=== PATIENT | female | born 1985 | race African-American/Black ===

== ENCOUNTER 2017-06-25 08:12 | Outpatient (CLI) | payer MEDICARE ==
--- NOTE | 2017-06-25 09:54 | CT ---
CT PELVIS WITHOUT CONTRAST: Date: 06/25/17 HISTORY: Pelvic pain. FINDINGS: The visualized small bowel loops appear normal. The appendix is identified and appears normal. Images through the pelvis show an unremarkable appearing uterus. There is a cyst in the right adnexa consis tent with an ovarian cyst which measures up to 2.5 cm. No free fluid in the pelvis. The osseous struc tures are unremarkable. IMPRESSION: 1. Evidence of right ovarian cyst. 2. CT pelvis otherwise unremarkable. POS: [facility]
== END 2017-06-25 08:13 | disposition home or self-care (01) ==
LOC: CT 08:12
PROVIDERS: ATTEND Physician Assistant
DX: R10.2 Pelvic and perineal pain (principal); N83.201 Unspecified ovarian cyst, right side
CPT/HCPCS: 72192

== ENCOUNTER 2018-04-08 17:22 | Emergency (ER) | payer MEDICARE ==
[~2018-04-08 17:22] MED LIST: ISOVUE-370 76%-LOCM 1 ML ONE
[2018-04-08 17:48] LABS: #Eosinphils 0.2 thou/uL (0.0-0.7); #Monocytes 0.5 thou/uL (0.11-0.59); #Neutrophils 4.2 thou/uL (1.40-6.50); %Basophils 0.4 % (0.0-1.0); %Lymphocytes 37.7 % (21.0-51.0); %Monocytes 6.8 % (0.0-10.0); %Neutrophils 53.2 % (42.0-75.0); Hemoglobin 14.2 g/dL (12.0-16.0); Mean Corpuscular HGB CONC 32.8 g/dL (32.0-36.0); Mean Corpuscular Hemoglobin 29.5 pg (27.0-31.0); Mean Platelet Volume 7.5 fL (7.4-10.4); Platelet Count 335 thou/uL (130-400); RBC Distribution Width 11.5 % (11.5-14.5); Red Blood Cell (RBC) Count 4.82 mill/uL (4.20-5.40)
[2018-04-08 18:08] LABS: BHCG - Serum Negative (NEGATIVE); Pregs Control Background? CLEAR/WHITE (CLR/WHITE); Pregs Control Bar Appear? YES (CONTROL BAR)
[2018-04-08 18:16] LABS: CKMB 1.9 ng/mL (0-6.6); Troponin I Less than 0.010 ng/mL (< 0.028)
--- NOTE | 2018-04-08 18:17 | RAD ---
PORTABLE AP CHEST X-RAY 04/08/18 HISTORY: Chest pain. COMPARISON: None available. FINDINGS: The cardiac silhouette and pulmonary vasculature are within normal limits. There is linear and patchy density at the medial right lung base probably related to superimposition of structures. The lungs a re otherwise clear. Osseous structures are intact. IMPRESSION: No acute cardiopulmonary process. POS: [facility]
[2018-04-08 18:28] LABS: ALT (SGPT) 18 U/L (8-55); AST (SGOT) 24 U/L (5-34); Albumin 4.3 g/dL (3.5-5.0); Alkaline Phosphatase 63 U/L (40-150); Anion Gap 14 mmol/L (10-20); BUN (Urea Nitrogen) 7 mg/dL (7.0-18.7); Bilirubin, Total 0.3 mg/dL (0.2-1.2); Calc. Creatinine Clearance 0 mL/min (70-130); Calcium 9.8 mg/dL (7.8-10.44); Carbon Dioxide 21 mmol/L (22-29); Chloride 108 mmol/L (98-107); Estimated GFR-MDRD Greater than 90; Globulin 3.1 g/dL (2.4-3.5); Glucose 108 mg/dL (70-105); Potassium 4.4 mmol/L (3.5-5.1); Protein, Total 7.4 g/dL (6.0-8.3); Sodium 139 mmol/L (136-145)
[2018-04-08] MEDS ORDERED: Acetaminophen 500 MG TAB ONE (19:30)
--- NOTE | 2018-04-08 20:44 | CT ---
CT ANGIOGRAM THORAX WITH IV CONTRAST AND 3D RECONSTRUCTIONS: 04/08/18 HISTORY: Constant left sided chest pain with sudden onset this morning. Heaviness in chest. Shortness of breat h and fatigue for the past three days. Lower extremity swelling. COMPARISON: 05/10/16. FINDINGS: There is a filling defect seen within a medial right upper lobe subsegmental vessel, but this is thou ght to more likely be related to a pulmonary vein as opposed to a pulmonary artery, but this is diffi cult to adequately evaluate given the dense contrast within the adjacent SVC and azygos vein limiting adequate evaluation. However, there are no other filling defects seen within the pulmonary arteries to definitely suggest a pulmonary embolus. The thoracic aorta is normal in caliber without evidence of an aortic dissection. There is mild stranding seen within the anterior superior mediastinum, but this is stable when compar ed to study in 2016 and may be related to residual thymic tissue. No enlarged lymph node is seen by C T size criteria. There is dependent atelectasis bilaterally. The lungs are otherwise clear. There is a subcentimeter too small to characterize hypodense lesion within the left hepatic lobe with calcified granuloma again seen in the liver. remainder of the fragment has a normal CT appearance. IMPRESSION: 1. No definite CT evidence of a pulmonary embolus. 2. Small filling defect within a subsegmental medial right upper lobe vessel which is thought to more likely represent a pulmonary vein as opposed to a filling defect within a pulmonary artery rela gigi to a pulmonary embolus. In addition, there are no additional filling defects seen throughout the pulmonary arteries. 3. Subcentimeter too small to characterize hypodense lesion left hepatic lobe. POS: [facility]
== END 2018-04-08 21:18 | disposition home or self-care (01) ==
LOC: ERS 17:22
DX: R07.89 Other chest pain (principal); F32.9 Major depressive disorder, single episode, unspecified
CPT/HCPCS: 71045; 71275; 80053; 82553; 84484; 84703; 85025; 93005

== ENCOUNTER 2018-05-14 22:55 | Emergency (ER) | payer MEDICARE ==
[2018-05-14] MEDS ORDERED: Ketorolac Tromethamine 30 MG/ML VIAL ONE (23:04)
[2018-05-14] MEDS ORDERED: Metoclopramide HCl 10 MG/2 ML VIAL ONE (23:04)
[2018-05-14 23:58] LABS: BHCG - Serum Negative (NEGATIVE); Pregs Control Background? CLEAR/WHITE (CLR/WHITE); Pregs Control Bar Appear? YES (CONTROL BAR)
[2018-05-15] MEDS ORDERED: methylPREDNISolone Sod Succ/PF 125 MG/2 ML VIAL ONE (01:20)
[2018-05-15] MEDS ORDERED: Acetaminophen 500 MG TAB ONE (01:20)
[2018-05-15] MEDS ORDERED: Magnesium 2 GM/50 ML BAG (IN WATER) ONE (01:20)
--- NOTE | 2018-05-15 08:05 | CT ---
PRELIMINARY REPORT/[facility]/EMERGENTY AFTER-HOURS PROCEDURE CT Head Without Intravenous Contrast CLINICAL HISTORY: 33 years old, female; Pain; Headache; Cluster; Patient HX: 33f presents for the evaluation of a heada shyam x 2 weeks. Patient reports gradual progression of headache. No HX of migraines or headaches in th e past. She denies vision changes. Occasional light and sound sensitivity. No head trauma. No aura. P atient has taken otc tylenol and motrin with no relief. TECHNIQUE: Axial computed tomography images of the head/brain without intravenous contrast. COMPARISON: No relevant prior studies available. FINDINGS: Brain: No acute findings. No hemorrhage. No significant white matter disease. No edema. Ventricles: No acute findings. No ventriculomegaly. Bones/joints: No acute fracture. Soft tissues: No acute findings. Sinuses: No acute findings. No significant air fluid levels. Mastoid air cells: No acute findings. No significant fluid. IMPRESSION: No acute findings. Thank you for allowing us to participate in the care of your patient. Dictated and Authenticated by: Joel Styles MD 05/15/2018 12:57 AM Central Time ([place] & [place]) FINAL REPORT CT BRAIN WITHOUT CONTRAST: I agree with the preliminary report given by Dr. Styles of [employer]. POS: [facility]
== END 2018-05-15 02:25 | disposition home or self-care (01) ==
LOC: ERS 22:55
DX: R51 Headache (principal); F32.9 Major depressive disorder, single episode, unspecified; Z79.899 Other long term (current) drug therapy
CPT/HCPCS: 70450; 84703; 96365; 96366; 96367; 96375; J1885; J2765; J2930

== ENCOUNTER 2018-07-03 14:47 | Emergency (ER) | payer MEDICARE ==
[2018-07-03 15:21] LABS: Bilirubin Negative (Negative); Blood, Urine Negative (Negative); Clarity CLEAR (Clear); Glucose, Urine (Dipstick) Negative (Negative); Leukocyte Trace (Negative); Nitrite Negative (Negative); Protein, Urine (Dipstick) Negative (Neg-Trace); Urobilinogen 0.2 mg/dL (0.2-1.0); pH, Urine 5.5 (5.0-9.0)
[2018-07-03 15:24] LABS: Bacteria/HPF None Seen HPF (None Seen); Hyaline Casts/LPF 0-3 HYALINE CAST LPF (0-3 Hyaline); Pathc Cast-AUWi Flag 0.43 (0-2.49); RBC/HPF 0-3 HPF (0-3); Squamous Epithelial 0-3 HPF (0-3); WBC/HPF 0-3 HPF (0-3)
[2018-07-03 15:40] LABS: #Lymphocytes 1.9 thou/uL (1.20-3.40); #Monocytes 0.5 thou/uL (0.11-0.59); #Neutrophils 6.8 thou/uL (1.40-6.50); %Basophils 0.4 % (0.0-1.0); %Eosinophils 0.4 % (0.0-10.0); %Lymphocytes 20.2 % (21.0-51.0); %Monocytes 5.5 % (0.0-10.0); %Neutrophils 73.6 % (42.0-75.0); Hemoglobin 14.1 g/dL (12.0-16.0); Mean Corpuscular HGB CONC 33.6 g/dL (32.0-36.0); Mean Corpuscular Hemoglobin 30.2 pg (27.0-31.0); Mean Corpuscular Volume 89.9 fL (78.0-98.0); Mean Platelet Volume 6.9 fL (7.4-10.4); Platelet Count 302 thou/uL (130-400); RBC Distribution Width 11.4 % (11.5-14.5); Red Blood Cell (RBC) Count 4.68 mill/uL (4.20-5.40); White Blood Cell (WBC) Count 9.2 thou/uL (4.8-10.8)
[2018-07-03 16:01] LABS: ALT (SGPT) 11 U/L (8-55); AST (SGOT) 12 U/L (5-34); Alkaline Phosphatase 69 U/L (40-150); Anion Gap 13 mmol/L (10-20); BUN (Urea Nitrogen) 9 mg/dL (7.0-18.7); Bilirubin, Total 0.4 mg/dL (0.2-1.2); Calc. Creatinine Clearance 0 mL/min (70-130); Calcium 9.3 mg/dL (7.8-10.44); Carbon Dioxide 25 mmol/L (22-29); Chloride 103 mmol/L (98-107); Estimated GFR-MDRD Greater than 90; Globulin 3.4 g/dL (2.4-3.5); Glucose 98 mg/dL (70-105); Lipase 22 U/L (8-78); Potassium 3.9 mmol/L (3.5-5.1); Protein, Total 7.4 g/dL (6.0-8.3); Sodium 137 mmol/L (136-145)
[2018-07-03] MEDS ORDERED: Ondansetron PF 4 MG/2 ML Vial ONE (16:24)
[2018-07-03] MEDS ORDERED: Morphine 4 MG/ML VIAL SLOW IVP SCH (16:45)
[2018-07-03 17:15] LABS: Pregnancy Test - Urine (BHCG) Negative (Negative)
[2018-07-03 17:16] LABS: Pregu Control Background? CLEAR/WHITE (CLR/WHITE); Pregu Control Bar Appear? YES (CONTROL BAR); Specific Gravity 1.011 (1.002-1.036)
[2018-07-03] MEDS ORDERED: Morphine 10 MG/ML VIAL ONE (17:40)
[2018-07-03] MEDS ORDERED: diphenhydrAMINE 50 MG/ML VIAL ONE (17:53)
[2018-07-03] MEDS ORDERED: methylPREDNISolone Sod Succ/PF 125 MG/2 ML VIAL ONE (17:59)
--- NOTE | 2018-07-03 18:09 | ULT ---
GALLBLADDER ULTRASOUND: 07/03/18 HISTORY: Right upper quadrant pain. Suprapubic and right flank pain. Real time imaging of the right upper quadrant shows a contracted gallbladder. Patient was not n.p.o. for this examination. I do not see any obvious stones. It is difficult to assess gallbladder wall thi ckening given the contracted state. Technologist does report a positive ultrasound Morgan's sign. The liver parenchyma shows no focal abnormalities. Common duct is 5 mm. Pancreas is partially obscured b ut appears unremarkable. Right kidney is within normal limits of size and not obstructed. IMPRESSION: Contracted gallbladder, probably related to patient not being n.p.o. for this exam. The technologist does report a positive ultrasound Morgan's sign. POS: [facility]
[2018-07-03] MEDS ORDERED: cefTRIAXone\\ROCEPHIN 250 MG VIAL ONE ×2 (18:40→18:44)
[2018-07-03] MEDS ORDERED: Azithromycin 250 MG TAB ONE ×2 (18:40→18:44)
[2018-07-05 23:45] LABS: Chlamydia by PCR Not Detected (NotDetected); GC by PCR Not Detected (NotDetected)
== END 2018-07-03 19:20 | disposition home or self-care (01) ==
LOC: ERS 14:47
DX: R10.30 Lower abdominal pain, unspecified (principal); F32.9 Major depressive disorder, single episode, unspecified; Z79.899 Other long term (current) drug therapy
CPT/HCPCS: 36415; 76705; 80053; 81003; 81015; 81025; 83690; 85025; 87480; 87491; 87510; 87591; 87660; 96361; 96365; 96375; J0696; J1200; J2270; J2405; J2930

== ENCOUNTER 2020-01-31 16:53 | Emergency (ER) | payer MEDICARE ==
--- NOTE | 2020-01-31 17:47 | RAD ---
EXAM: CHEST ONE VIEW HISTORY: Chest pain. COMPARISON: 04/08/2018 FINDINGS: The cardiac silhouette and pulmonary vasculature is within normal limits. The lungs are clear. The os seous structures are intact. No interval change from prior study. IMPRESSION: No acute cardiopulmonary process.
[2020-01-31 17:53] LABS: ALT (SGPT) 14 U/L (8-55); AST (SGOT) 14 U/L (5-34); Albumin 4.4 g/dL (3.5-5.0); Alkaline Phosphatase 52 U/L (40-110); Anion Gap 10 mmol/L (10-20); BUN (Urea Nitrogen) 12 mg/dL (7.0-18.7); Bilirubin, Total 0.3 mg/dL (0.2-1.2); Calc. Creatinine Clearance 0 mL/min (70-130); Calcium 9.5 mg/dL (7.8-10.44); Carbon Dioxide 27 mmol/L (22-29); Chloride 106 mmol/L (98-107); Estimated GFR-MDRD Greater than 90; Globulin 2.8 g/dL (2.4-3.5); Glucose 97 mg/dL (70-105); Potassium 3.9 mmol/L (3.5-5.1); Protein, Total 7.2 g/dL (6.0-8.3); Sodium 139 mmol/L (136-145)
[2020-01-31] MEDS ORDERED: Ketorolac Tromethamine 30 MG/ML VIAL ONE (18:32)
== END 2020-01-31 18:48 | disposition home or self-care (01) ==
LOC: ERS 16:53
DX: R07.9 Chest pain, unspecified (principal); R51 Headache; F32.9 Major depressive disorder, single episode, unspecified
CPT/HCPCS: 36415; 71045; 80053; 84484; 93005; 96372; J1885